=== PATIENT | female | born 1960 | race Caucasian/White ===

== ENCOUNTER → 2018-05-16 08:38 | Outpatient (CLI) | payer OTHER, SELFPAY ==
--- NOTE | 2018-05-16 08:47 | US_ITS ---
STUDY: THYROID ULTRASOUND REASON FOR EXAM: Female, 57 years old. Neck mass. TECHNIQUE: Ultrasound evaluation of the thyroid was performed with real-time and static browne-scale imaging. COMPARISON: None. FINDINGS: RIGHT LOBE: The right lobe of the thyroid gland measures 4.1 x 1.3 x 0.9 cm. There is a homogeneous echotexture. There is a 6 mm lower pole solid nodule. LEFT LOBE: The left lobe of the thyroid gland measures 3.8 x 1.5 x 1.1 cm. There is a homogeneous echotexture. There is a 3 mm cyst. ISTHMUS: The isthmus measures 2 mm . The regional lymph nodes are normal. US/Thyroid IMPRESSION: No significant abnormality or mass. Subcentimeter nodule in the right lobe could be followed in one year. Electronically Signed: Jefe Sultana MD at 0:00 EDT , Service support ,
== END ==
PROVIDERS: Family Provider Nurse Practitioner Family; PCP Nurse Practitioner Family; Referring Provider Nurse Practitioner Family; Visit Provider Nurse Practitioner Family
DX: R22.1 Localized swelling, mass and lump, neck (principal)
CPT/HCPCS: 76536